=== PATIENT | female | born 1940 | race Caucasian/White ===

== ENCOUNTER → 2018-05-15 | Outpatient (CLI) | payer MEDICARE, OTHER ==
--- NOTE | 2018-05-15 12:43 | US ---
EXAMINATION TYPE: US thyroid st tissue head/neck DATE OF EXAM: 05/15/2018 COMPARISON: 2015 CLINICAL HISTORY: E04.1 SINGLE THYROID NODULE. GLAND SIZE: Right Lobe: 3.3 x 1.0 x 1.5 cm Overall Parenchyma: homogenous Left Lobe: 4.3 x 1.4 x 1.4 cm Overall Parenchyma: heterogeneous Isthmus Thickness: 0.2 cm NODULES RIGHT: # of nodules measured on right: 3 1. 0.3 X 0.3 x 0.2 cm mixed nodule at the upper pole with well-defined margins; . This nodule is wider than tall and shows no intranodular vascularity. Prior size: 0.4 x 0.3 x 0.2 cm 2. 0.6 X 0.4 x 0.7 cm mixed nodule at the lower pole with well-defined margins; This nodule is wid er than tall and shows no intranodular vascularity. Prior size: 0.3 x 0.2 x 0.2 cm 3. 0.5 X 0.6 x 0.2 cm mixed nodule at the medial pole with well-defined margins; . This nodule is w ider than tall and shows no intranodular vascularity. Prior size: 0.4 x 0.3 x 0.2 cm LEFT: # of nodules measured on left: 3 1. 1.1 X 0.8 x 05 cm mixed nodule at the upper pole with well-defined margins; . This nodule is wi min than tall and shows intranodular vascularity. Prior size: 0.7 x 0.7 x 0.5 cm 2. 1.1 X 0.8 x 0.5 cm mixed nodule at the mid pole with well-defined margins; . This nodule is wide r than tall and shows intranodular vascularity. Prior size: 1.1 x 1.3 x 1.4 cm 3. 0.8 X 1.0 x 0.5 cm mixed nodule at the lower pole with well-defined margins; . This nodule is wi min than tall and shows intranodular vascularity. Prior size: 1.0 x 1.1 x 0.8 cm ISTHMUS: # of nodules measured in the isthmus: 0 Bilateral neck scanned, no evidence of lymphadenopathy. IMPRESSION: 1. Multinodular thyroid. There are a couple nodules have demonstrated interval increase in size as me asured above. 2. Heterogeneous pattern to the left thyroid suggests thyroiditis.
[2018-05-15 13:14] LABS: T4, Free (Free Thyroxine) 1.07 ng/dL (0.78-2.19)
== END | disposition home or self-care (01) ==
LOC: RADUSWWP 11:37
PROVIDERS: ATTEND Internal Medicine Endocrinology, Diabetes & Metabolism
DX: E04.2 Nontoxic multinodular goiter (principal)
CPT/HCPCS: 36415; 76536; 84439; 84443

== ENCOUNTER → 2019-05-16 | Outpatient (CLI) | payer MEDICARE, OTHER ==
--- NOTE | 2019-05-16 16:05 | US ---
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 GLAND SIZE: Right Lobe: 4.0 x 1.5 x 1.5 cm Overall Parenchyma: homogenous Left Lobe: 4.6 x 1.6 x 1.4 cm Overall Parenchyma: homogeneous Isthmus Thickness: 0.7 cm NODULES RIGHT: # of nodules measured on right: 3 largest of multiple 1. 0.4 X 0.3 x 0.4 cm hypoechoic mixed nodule at the upper pole with well-defined margins. This no dule is taller than wide and shows no intranodular vascularity. Prior size: 0.3 x 0.3 x 0.2 cm 2. 0.7 X 0.6 x 0.7 cm hypoechoic mixed nodule at the lower pole with well-defined margins. This nod ule is taller than wide and shows no intranodular vascularity. Prior size: 0.6 x 0.4 x 0.7 cm 3. 0.7 X 0.8 x 0.4 cm hypoechoic mixed nodule at the lower medial pole with well-defined margins. T his nodule is wider than tall and shows no intranodular vascularity. Prior size: 0.5 x 0.6 x 0.2 cm LEFT: # of nodules measured on left: 3 largest 1. 1.5 X 1.5 x 0.7 cm hypoechoic mixed nodule at the mid pole with well-defined margins. This nodu le is wider than tall and shows no intranodular vascularity. Prior size: 1.1 x 0.8 x 0.5 cm 2. 0.7 X 0.7 x 0.3 cm hypoechoic mixed nodule at the mid medial pole with well-defined margins. Thi s nodule is wider than tall and shows no intranodular vascularity. Prior size: 1.1 x 0.8 x 0.5 cm 3. 1.2 X 0.9 x 0.6 cm hypoechoic mixed nodule at the lower pole with poorly defined margins (may be heterogeneous area. This nodule is wider than tall and shows no intranodular vascularity. Prior size: 0.8 x 1.0 x 0.5 cm ISTHMUS: # of nodules measured in the isthmus: 0 Bilateral neck scanned: no evidence of lymphadenopathy. IMPRESSION: A nodule thyroid changes with interval incremental increase in size of a 1.5 cm nodule in the left lo be which previously measured 1.1 cm. Additionally, there is a 1.2 cm nodule within the left lobe whic h previously measured 1.0 cm.
[2019-05-16 16:53] LABS: T4, Free (Free Thyroxine) 1.09 ng/dL (0.78-2.19)
== END | disposition home or self-care (01) ==
LOC: RADUSWWP 15:09
PROVIDERS: ATTEND Internal Medicine Endocrinology, Diabetes & Metabolism
DX: E04.2 Nontoxic multinodular goiter (principal)
CPT/HCPCS: 76536; 84439; 84443

== ENCOUNTER → 2019-05-20 | Outpatient (CLI) | payer MEDICARE, OTHER ==
--- NOTE | 2019-05-20 15:53 | BD ---
EXAMINATION TYPE: Axial Bone Density DATE OF EXAM: 05/20/2019 COMPARISON: 01.25.2016 CLINICAL HISTORY: 78 YR OLD FEMALE.....ICD-10 CODE: Z78.0 POST MENOPAUSAL Height: 58.1 Weight: 167 FRAX RISK QUESTIONS: History of Fracture in Adulthood: YES Secondary Osteoporosis: YES 3. Menopause before 45: YES, AT 44 YRS OLD RISK FACTORS HISTORY OF: HX OF RT SHOULDER FX 2 YRS AGO Postmenopausal woman: HYST AT AGE 44 YRS OLD Lost more than 2 inches in height since high school: YES Frequent falls: ELDERLY Hyperparathyroidism: NO Adrenal Insufficiency: NO MEDICATIONS: Additional Medications: BP MEDS, REFLUX MEDS, STATIN FOR CHOLESTEROL, Additional History: HYPERTENSION, REFLUX, CHOLESTEROL, OSTEOARTHRITIS, BILAT KNEE REPLACEMENTS EXAM MEASUREMENTS: Bone mineral densitometry was performed using the [email or web address] System. Bone mineral density as measured about the Lumbar spine is: ----- L1-L4(G/cm2): 1.805 T Score Values are as follows: ----- L1: 6.0 ----- L2: 4.8 ----- L3: 5.1 ----- L4: 4.9 ----- L1-L4: 5.2 Bone mineral density has: Increased 19.9% since study of: 01.25.2016 Bone mineral density about the R hip (g/cm2): 0.904 Bone mineral density about the L hip (g/cm2): 1.064 T Score values are as follows: -----R Neck: -1.1 -----L Neck: -0.4 -----R Total: -0.8 -----L Total: 0.4 Bone mineral density has: Increased 3.3% since study of: 01.25.2016 FRAX%s: THERE IS A 15.3% CHANCE FOR A MAJOR OSTEOPOROTIC FX AND A 2.4% FOR HIP.....PROBABILITY FOR FX IN 10 YRS TIME IMPRESSION: Osteopenia (T Score between -2.5 and -1). There is slightly increased risk of fracture and the patient may be considered for treatment. Re-Screen 2-5 years. NOTE: T-SCORE=SD OF THE YOUNG ADULT MEAN.
== END | disposition home or self-care (01) ==
LOC: RADBDWWP 14:35
PROVIDERS: ATTEND Family Medicine
DX: M85.88 Other specified disorders of bone density and structure, other site (principal); Z78.0 Asymptomatic menopausal state
CPT/HCPCS: 77080

== ENCOUNTER → 2021-01-12 | Outpatient (CLI) | payer MEDICARE, OTHER ==
[2021-01-12 15:01] LABS: T4, Free (Free Thyroxine) 1.38 ng/dL (0.78-2.19)
--- NOTE | 2021-01-12 16:48 | US ---
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 Follow up exam GLAND SIZE: Right Lobe: 4.0 x 1.5 x 1.5 cm Overall Parenchyma: heterogenous Left Lobe: 4.6 x 1.6 x 1.4 cm Overall Parenchyma: heterogeneous Isthmus Thickness: 0.7 cm NODULES RIGHT: # of nodules measured on right: 1, multiple subcentimeter 1. 0.9 X 0.9 x 0.9 cm, mid, mixed cystic and solid nodule, with smooth margins, without echogenic f oci. Prior size: 0.7 x 0.7 x 0.6 cm LEFT: # of nodules measured on left: 1, multiple subcentimeter 1. 1.7 X 0.7 x 1.4 cm mixed cystic and solid nodule, which is wider than tall, with smooth margins , without echogenic foci. Prior size: 1.5 x 0.7 x 1.5 cm ISTHMUS: # of nodules measured in the isthmus: 1- rt side 1. 0.9 X 0.9 x 0.7 cm, mixed cystic and solid nodule, which is wider than tall, with smooth margin s, without echogenic foci. Prior size: 0.7 x 0.5 x 0.8 cm Bilateral neck scanned, no evidence of lymphadenopathy. IMPRESSION: 9 mm right thyroid nodule mixed cystic and solid has increased to 9 mm from 7 mm. Left thyroid nodule mixed cystic and solid is now 1.7 cm, previously 1.5 cm. These are mixed cystic and solid nodules. If clinically indicated, fine-needle aspiration of the left thyroid nodule could be obtained. Continu ed sonographic follow-up is recommended. Bilateral subcentimeter nodules are also seen.
== END | disposition home or self-care (01) ==
LOC: RADUSWWP 13:18
PROVIDERS: ATTEND Internal Medicine Endocrinology, Diabetes & Metabolism
DX: E04.2 Nontoxic multinodular goiter (principal)
CPT/HCPCS: 76536; 84439; 84443

== ENCOUNTER 2021-02-13 07:52 | Emergency (ER) | payer MEDICARE, OTHER ==
[2021-02-13 07:56] VITALS: BP 170/76; PULSE 65; RESP 16; TEMP 97.7
--- NOTE | 2021-02-13 08:15 | ED ---
General Adult HPI - General Chief complaint: Back Pain/Injury Stated complaint: Back pain Time Seen by Provider: 02/13/21 07:55 Source: patient, RN notes reviewed, old records reviewed Mode of arrival: ambulatory Limitations: physical limitation - History of Present Illness Initial comments: This is a 80-year-old female presents emergency Department with some right upper back pain just lateral to the spine and medial to the scapula. Patient states laying on that side makes it hurt twisting makes it hurt and usually when it comes it feels like a spasm that last a few seconds but it's very sharp when it happens. Patient denies any injury but she states she was lifting some water bottles recently and thinks she might eventually then. Patient denies any difficulty breathing. Patient denies any rash or redness. Patient denies any other injury. Patient's any chest pain. Patient denies any recent fever chills or cough. Patient denies any other symptoms at this time. - Related Data Home Medications Medication Instructions Recorded Confirmed Aspirin 81 mg PO DAILY 11/23/14 11/23/14 Atorvastatin Calcium [Lipitor] 20 mg PO DAILY 11/23/14 11/23/14 Losartan/Hydrochlorothiazide 1 each PO DAILY 11/23/14 11/23/14 [Losartan-Hctz 100-25 mg Tab] Metoprolol Tartrate [Lopressor] 25 mg PO BID 11/23/14 11/23/14 Potassium Chloride [Klor-Con 10] 10 meq PO 11/23/14 11/23/14 Previous Rx's Medication Instructions Recorded HYDROcodone/APAP 5-325MG [[place] 1 each PO Q6HR PRN #20 tab 11/23/14 5-325] Cyclobenzaprine [Flexeril] 5 mg PO BID PRN #10 tab 02/13/21 Allergies Allergy/AdvReac Type Severity Reaction Status Date / Time No Known Allergies Allergy Verified 02/13/21 07:55 Review of Systems ROS Statement: Those systems with pertinent positive or pertinent negative responses have been documented in the HPI. ROS Other: All systems not noted in ROS Statement are negative. Past Medical History Past Medical History: Hyperlipidemia, Hypertension History of Any Multi-Drug Resistant Organisms: None Reported Past Surgical History: Cholecystectomy, Hysterectomy, Orthopedic Surgery Past Psychological History: No Psychological Hx Reported Smoking Status: Never smoker Past Alcohol Use History: None Reported Past Drug Use History: None Reported General Exam - General Exam Comments Initial Comments: GENERAL Patient is well-developed and well-nourished. Patient is in mild distress. EYES Patient's pupils are equal and round. Extraocular motion is intact SKIN Unremarkable NEURO The patient is alert and oriented 3 PYSCH Patient has normal interpersonal interactions. MUSCULOSKELETAL Patient has reproducible pain in the paraspinous muscles on the right upper thorax at the level of the scapula. Also the patient twist she can make the pain recur. Limitations: physical limitation Course Vital Signs 02/13/21 07:52 Temperature 97.7 F Pulse Rate 65 Respiratory 16 Rate Blood Pressure 170/76 O2 Sat by Pulse 99 Oximetry Medical Decision Making - Medical Decision Making patient was given Toradol and Flexeril in the emergency department. Disposition Clinical Impression: Thoracic back pain Disposition: HOME SELF-CARE Instructions (If sedation given, give patient instructions): Thoracic Pain (ED) Prescriptions: Cyclobenzaprine [Flexeril] 5 mg PO BID PRN #10 tab PRN Reason: Pain Is patient prescribed a controlled substance at d/c from ED?: No Referrals: Олег Jensen MD [Primary Care Provider] - 1-2 days Time of Disposition: 08:14
[2021-02-13] MEDS: KETOROLAC 15 MG/ML 1 ML VIAL IM STA (08:23)
[2021-02-13] MEDS: CYCLOBENZAPRINE 5 MG TAB PO STA (08:23)
== END 2021-02-13 08:27 | disposition home or self-care (01) ==
LOC: EC 07:52
DX: M54.6 Pain in thoracic spine (principal); I10 Essential (primary) hypertension; E78.5 Hyperlipidemia, unspecified; Z79.82 Long term (current) use of aspirin
CPT/HCPCS: 99283; 96372; J1885

== ENCOUNTER 2022-11-29 13:16 | Day surgery (SDC) | payer MEDICARE ==
[2022-11-29 13:46] VITALS: RESP 16; TEMP 98
[2022-11-29 14:47] VITALS: BP 161/77; PULSE 69
--- NOTE | 2022-11-29 15:03 | US ---
PROCEDURE: Ultrasound-guided left thyroid nodule fine-needle aspiration DATE: 11/29/2022 [facility] OPERATOR: Dr. Tolbert CLINICAL HISTORY: L1 TI-RADS 2 nodule COMPARISON: Ultrasound neck 10/19/2022 ANESTHESIA: 1% local lidocaine PROCEDURE: The procedure, risks, and alternatives were discussed and all questions were answered. Written inform ed consent obtained. A complicating paperwork and verified for accuracy. Directed history and physica l exam performed prior to the procedure. Medication reconciliation performed by nursing personnel. Pr ocedure was performed using a cap, sterile gloves, hand hygiene, and chlorhexidine for cutaneous anti sepsis. A critical pause was performed with assisting personnel just prior to the procedure with the patient's identity confirmed using 2 identifiers, confirming site and side. Limited grayscale ultrasound of the left neck was performed which demonstrates a solid/cystic nodule which corresponds to the L1, TI-RADS 2 nodule described on comparison ultrasound. An appropriate skin entry site was marked, prepped, and draped in usual sterile fashion. 1% lidocaine was administered t o the skin and deeper soft tissues. A 25-gauge needle was advanced under continues ultrasound guidanc e and fine needle aspiration was performed. Great care was made to sample the solid appearing portion s of the nodule, although this was relatively small. A total of 5 specimens were obtained, one of [facility] was used for Afirma testing. Limited postprocedural sent images demonstrate suspected postbiopsy c hanges without evidence of a hematoma. A sterile dressing was placed. The patient tolerated the procedure well and there were no immediate complications. Blood loss was mi nimal. IMPRESSION: Successful, uncomplicated ultrasound-guided L1 thyroid nodule fine-needle aspiration. Please note celestina t the solid components of this lesion were very small. If the pathology results come back as nondiagn ostic, please consider follow-up ultrasound to assess for interval change in size.
== END 2022-11-29 14:41 | disposition home or self-care (01) ==
LOC: RADPROMAIN 13:16
PROVIDERS: ATTEND Internal Medicine Endocrinology, Diabetes & Metabolism
DX: E04.1 Nontoxic single thyroid nodule (principal)
CPT/HCPCS: 10005; 88173; 88305

== ENCOUNTER → 2023-11-28 | Outpatient (CLI) | payer MEDICARE, OTHER ==
[2023-11-28 16:27] LABS: T4, Free (Free Thyroxine) 1.46 ng/dL (0.80-1.80)
--- NOTE | 2023-11-28 23:27 | US ---
EXAMINATION TYPE: US thyroid st tissue head/neck DATE OF EXAM: 11/28/2023 COMPARISON: 11/29/2022 10/19/2022 CLINICAL INDICATION: Female, 83 years old with history of E04.2 NONTOXIC GOITER; GLAND SIZE: Right Lobe: 4.5 x 1.3 x 2.0 cm Overall Parenchyma: homogeneous Left Lobe: cm Overall Parenchyma: Isthmus Thickness: cm NODULES RIGHT: # of nodules measured on right: 2 1. 1.8 X 1.4 x 1.4 cm, lower lateral, cystic or almost completely cystic, very hypoechoic nodule, w hich is wider than tall, with smooth margins, without echogenic foci. Prior size: 1.4 x 1.4 x 1.3 cm 2. 1.2 X 0.6 x 1.1 cm, lower medial, mixed cystic and solid, hypoechoic nodule, which is taller celestina n wide, with smooth margins, without echogenic foci. Prior size: Not measured on prior LEFT: # of nodules measured on left: 2 1. 4.5 X 1.6 x 1.7 cm, mid lateral, mixed cystic and solid, hypoechoic nodule, which is wider than tall, with smooth margins, without echogenic foci. TR 3 Prior size: 2.1 x 1.1 x 1.4 cm 2. 1.1 X 0.9 x 0.9 cm, lower medial, spongiform, isoechoic nodule, which is wider than tall, with ill-defined margins, without echogenic foci. Prior size: not seen ISTHMUS: # of nodules measured in the isthmus: 0 Bilateral neck scanned, no evidence of lymphadenopathy. IMPRESSION: 1. Mildly suspicious increasing size nodule left lobe thyroid fine-needle aspiration recommended. 2017 ACR TI-RADS LEVEL: *Highest TI-RADS level nodule reported
== END | disposition home or self-care (01) ==
LOC: RADUSWWP 12:31
PROVIDERS: ATTEND Internal Medicine Endocrinology, Diabetes & Metabolism
DX: E04.1 Nontoxic single thyroid nodule (principal)
CPT/HCPCS: 36415; 76536; 84439; 84443

== ENCOUNTER → 2024-05-24 | Outpatient (CLI) | payer MEDICARE, OTHER ==
--- NOTE | 2024-05-31 10:08 | US ---
EXAMINATION TYPE: US thyroid st tissue head/neck DATE OF EXAM: 05/24/2024 COMPARISON: NONE CLINICAL INDICATION: Female, 83 years old with history of E04.2 NONTOXIC MULTINODULAR GOITER; Goiter TECHNIQUE: Grayscale and color Doppler imaging of the thyroid gland. FINDINGS: GLAND SIZE: Right Lobe: 4.5 x 2.4 x 2.2 cm Overall Parenchyma: homogeneous Left Lobe: 4.9 x 1.6 x 1.6 cm Overall Parenchyma: homogeneous Isthmus Thickness: 0.5 cm NODULES RIGHT: # of nodules measured on right: 1 1. 2.5 X 2.3 x 2.1 cm, mid , mixed cystic and solid, hypoechoic nodule, which is wider than tall, w ith smooth margins, without echogenic foci. Prior size: 1.8 x 1.4 x 1.4 cm LEFT: # of nodules measured on left: 1 1. 1.8 X 0.7 x 1.2 cm, mid , mixed cystic and solid, hypoechoic nodule, which is wider than tall, w ith ill-defined margins, without echogenic foci. Prior size: 1.6 x 0.9 x 1.3 cm ISTHMUS: # of nodules measured in the isthmus: 1 - right 1. 1.2 X 0.7 x 0.9 cm mixed cystic and solid, hypoechoic nodule, which is wider than tall, with smo oth margins, without echogenic foci. Prior size: 1.2 x 0.6 x 1.1 cm Bilateral neck scanned, no evidence of lymphadenopathy. IMPRESSION: Moderately Suspicious: FNA if ? 1.5 cm; Follow if ? 1 cm at 1, 2, 3, and 5 y 2017 ACR TI-RADS LEVEL: TR4 *Highest TI-RADS level nodule reported [email or web address] [facility], , 05/31/2024 10:06 AM
== END | disposition home or self-care (01) ==
LOC: RADUSWWP 13:03
PROVIDERS: ATTEND Internal Medicine Endocrinology, Diabetes & Metabolism
DX: E04.2 Nontoxic multinodular goiter (principal)
CPT/HCPCS: 76536